=== PATIENT | female | born 1960 | race Two or more races ===

== ENCOUNTER 2017-01-07 22:02 | Emergency (ER) | payer MEDICAID ==
[2017-01-07 22:47] VITALS: BP 160/91
== END 2017-01-07 22:48 | disposition home or self-care (01) ==
LOC: ED 22:02
DX: J02.9 Acute pharyngitis, unspecified (principal); I10 Essential (primary) hypertension

== ENCOUNTER 2017-08-15 19:05 | Emergency (ER) | payer MEDICAID ==
[2017-08-15 19:27] VITALS: BP 139/89
== END 2017-08-15 21:31 | disposition home or self-care (01) ==
LOC: ED 19:05
DX: K02.9 Dental caries, unspecified (principal); I10 Essential (primary) hypertension
CPT/HCPCS: J3010

== ENCOUNTER 2018-03-20 13:34 | Emergency (ER) | payer MEDICAID ==
[~2018-03-20] VITALS: Ht 142.2 cm; Wt 77.1 kg
[2018-03-20 13:36] VITALS: Ht 142.2 cm; Wt 77.1 kg
[2018-03-20 15:54] VITALS: BP 141/83
== END 2018-03-20 15:54 | disposition home or self-care (01) ==
LOC: ED 13:34
DX: K08.89 Other specified disorders of teeth and supporting structures (principal); I10 Essential (primary) hypertension